=== PATIENT | male | born 1950 | race Caucasian/White ===

== ENCOUNTER 2016-11-13 04:49 | Inpatient (IN) | payer OTHER, MEDICARE ==
[~2016-11-13] VITALS: Ht 185.4 cm; Wt 85.0 kg
--- NOTE | ~2016-11-13 | CO ---
Unit #: [id number] #: [id number] Patient: KALYAN AMES [id number] [address] [place], [place] [address] [id number] I MR#: [id number] NAME: KALYAN AMES ROOM: CICCU3 Age: 66 Sex: M Admission Date: 11/13/2016 : 1950 Attending Physician: Nithin Yung M.D. Primary Care Physician: Primary Care Physician No Consultation Date: 11/13/2016 CONSULTATION REPORT REASON FOR CONSULTATION Elevated troponin. HISTORY OF PRESENT ILLNESS This is a 66-year-old white male, who came to the emergency room because of shortness of breath. He is currently intubated and is unable to provide a history. According to the , she had a recent cold, which she felt she gave to him. Two days ago, he began to have shortness of breath. He was unable to lay down, requiring him to sleep upright on the couch. He had a cough, but no fever or chills. Dyspnea occurred at rest as well on exertion. Because of his dyspnea worsened, he came to the emergency room for evaluation, where he was admitted with COPD exacerbation. He was started on steroids and sent to the intensive care unit, where he was placed on BiPAP. This morning, BiPAP was discontinued. A couple of hours later, the patient became restless and agitated. He was diaphoretic and complaining of chest pain. He was so dyspneic that he was unable to talk. He was on a nasal cannula that was changed to 100% non-rebreather. EKG was obtained, which found the patient to have ST depression in the lateral leads. His troponin initially was negative, but has peaked at 0.88. He has a history of coronary artery bypass graft x3 in 2001 with a mechanical mitral valve replacement after myocardial infarction, was done at [facility]. He also has risk factors for ischemic heart disease includes hypertension, hyperlipidemia, and nicotine abuse. He was seen by Dr. Lam for awhile after his surgery, but has since failed to follow. INR have been checked in his primary care office. PAST MEDICAL HISTORY 1. Coronary artery bypass graft x3 with mechanical mitral valve replacement after myocardial infarction in 2001 at [facility], no details available. 2. Hypertension. 3. Hyperlipidemia. 4. COPD. 5. Hypothyroidism. 6. Active smoker. 7. GERD. 8. Depression. PAST SURGICAL HISTORY Coronary artery bypass graft with mechanical mitral valve placement. SOCIAL HISTORY The patient is . He continues to smoke at least a pack of cigarettes daily for the past 45 years. Does drink alcohol. There is no Unit #: [id number] #: [id number] Patient: KALYAN AMES illicit drug use. FAMILY HISTORY Positive for coronary artery disease. ALLERGIES No known drug allergies. HOME MEDICATIONS Metoprolol tartrate 25 mg daily, levothyroxine 0.1 mg daily, Coumadin 7.5 mg daily, Lipitor 40 mg daily, ramipril 5 mg daily, paroxetine 30 mg daily, aspirin 81 mg daily, magnesium 250 mg daily, vitamin D of 1000 units daily. REVIEW OF SYSTEMS Unable to obtain, because the patient currently is intubated and sedated. PHYSICAL EXAMINATION VITAL SIGNS: Blood pressure 123/65, heart rate 71, temperature 97.0. BMI of 25. GENERAL: This is a 66-year-old white male, who is currently in an acute respiratory distress. NEUROLOGICAL: His eyes are open, unable to speak. Nods very infrequently. There were no obvious focal weaknesses. NECK: Trachea is midline. No thyromegaly. No lymphadenopathy. With positive jugular venous distention. HEART: S1 and S2. Heart sounds are normal. No murmurs. No rubs or clicks. Regular rate and rhythm. He is tachycardic with occasional ectopic beat. LUNGS: With diminished breath sounds throughout both lungs with limited air movement. ABDOMEN: Slightly firm, nondistended with bowel sounds are present. EXTREMITIES: Without leg edema. SKIN: Pale and diaphoretic. Noted for mottling of his lower extremities. DIAGNOSTIC STUDIES LABORATORY RESULTS: Glucose 137, BUN 6, creatinine 1.0, sodium 138, potassium 4.6. BNP 94. CK total 756, MB 30.9, MB index 4.1, troponin 0.84. Pro-time 24.8, INR 2.3. White count 12.4, hemoglobin 16.1, hematocrit 48.3, platelet count is 227. IMAGING STUDIES: Chest x-ray shows coarse interstitial prominence in the mid and lower lobe. CARDIOVASCULAR STUDIES: EKG shows sinus tachycardia, rate of 116 beats per minute. There is ST depression of 3 mm in the lateral leads, V4 through V6. IMPRESSION 1. Acute on chronic hypercapnic respiratory failure. 2. Acute non-ST elevation myocardial infarction. 3. Acute bronchitis. 4. Acute respiratory acidosis. 5. Status post three-vessel coronary artery bypass graft with mitral valve replacement. 6. Hypertension. 7. Hyperlipidemia. 8. Nicotine abuse. Unit #: [id number] #: [id number] Patient: KALYAN AMES PLAN 1. Cardiology was consulted for elevated troponin. The troponin ruled the patient in for an acute non-ST elevation myocardial infarction. We will start the patient on anticoagulation with aspirin and give help heparin bolus. We will start on Integrilin drip. 2. We will add IV beta-radha and nitrates. 3. Obtain 2D echocardiogram to evaluate left ventricular systolic function. 4. The patient demonstrates acute respiratory acidosis with acute respiratory failure. The pH was 6.90 with pCO2 of 66. Has been discussed with Dr. Chavez and he agrees that the patient needs to be intubated. 5. Repeat EKG and troponin. 6. Lipid profile will be obtained. We will start on high intensity statin when the patient is able to take oral. 7. We will withhold Coumadin for now. 8. The patient needs cardiac catheterization to define his coronary anatomy. This has been discussed with the and she is agreeable. We will schedule when the patient is stable. Thank you for allowing us to assist with this patient's care. Dictated by... Lane Levi A.P.R.N. for Sergei Alejo/guru TD: 11/13/2016 20:22 JOB #: [id number] CONSULTATION REPORT Page [address] APRN CONSULTATION REPORT
--- NOTE | ~2016-11-13 | EKG ---
[id number] NAME: KALYAN AMES MR#: [id number] DATE: 11/13/2016 at 13:06 ECG shows sinus tachycardia, with intraventricular conduction delay, mild, single PVCs, and high variability of the baseline. There is a slurred ST segment in the high lateral leads, suggestive of ischemia. No prior record available for comparison. IMPRESSION: 1. ECG suggests ischemia. 2. Suggest followup ECG. Dictated by...
--- NOTE | ~2016-11-13 | CR72 ---
[facility] A Service of [facility] & [facility] RADIOLOGY TEXT RESULTS PATIENT: KALYAN AMES LOCATION: [address] : [birth year] UNIT #: [id number] AGE: [address]: Nithin Yung MD SEX: M ORDER DR: [id number] [id number] [place], [place] [address] [id number] I MR#: [id number] Acc #: [id number] NAME: KALYAN AMES : 1950 SEX: M STUDY DATE/TIME: 11/16/2016 5:11 UNIT: [facility] ROOM: [facility] STUDY DESCRIPTION: CR Chest Single View Portable Attending Physician: Nithin Yung M.D. Ordering Physician: Seven Kauffman M.D. Primary Care Physician: No Primary Care Physician MEDICAL IMAGING REPORT This report is preliminary unless electronic signature is present EXAM Portable chest INDICATIONS Respiratory failure followup. PROCEDURE Frontal view chest. COMPARISON STUDIES 11/15/2016 FINDINGS Heart size within normal limits. ET tube is stable. No new dense consolidation or pneumothorax. IMPRESSION Stable. Dictated by... Gage Dawson M.D. THIS IS AN ELECTRONICALLY VERIFIED REPORT Gage Dawson M.D. at 11/17/2016 10:04 PM HARMEET/lauren TD: 11/16/2016 14:24 JOB #: [id number] MEDICAL IMAGING REPORT Page 1 of 1 COPY
--- NOTE | ~2016-11-13 | CO ---
Unit #: [id number] #: [id number] Patient: KALYAN AMES [id number] [address] [place], [place] [address] [id number] I MR#: [id number] NAME: KALYAN AMES ROOM: CIC3 Age: 66 Sex: M Admission Date: 11/13/2016 : 1950 Attending Physician: Nithin Yung M.D. Primary Care Physician: Primary Care Physician No CONSULTATION REPORT TYPE OF CONSULTATION Renal consult. REASON FOR CONSULTATION Evaluation of renal insufficiency. HISTORY OF PRESENT ILLNESS This is a 66-year-old white gentleman, who complained of shortness of breath and cough beginning 24 hours prior to admission. He states that he was unable lay down and required to sitting upright in order to sleep. With this he had some cough, but no fever. No chills. As the symptoms became progressively worse, he was admitted to the hospital for further evaluation and management. He was initially started on steroids and placed on BIPAP. As the symptoms became progressively worse, he was intubated and he was placed on the ventilator for mechanical ventilation. He worked up as shown and elevated troponin level of 7.0. We have been asked to see the patient because during this rapid decline, his renal function has became progressively worse. His creatinine has increased from 0.9 to 2.0 today. The patient has no prior history of renal disease. He does carry a diagnosis of hypertension, coronary artery disease, and chronic obstructive pulmonary disease. He is on the ventilator otherwise, no additional medical history. Review of his medications is not sure that he has received or taken any significant nephrotoxic agents. PAST MEDICAL HISTORY Significant for the following, 1. Coronary artery disease, status post coronary artery bypass grafting x3 with mechanical mitral valve placement in 2001. 2. Hypertension. 3. Hyperlipidemia. 4. Chronic obstructive pulmonary disease. 5. Hypothyroidism. 6. GERD. 7. Depression. MEDICATIONS The patient's current medications include the following, 1. Lasix 40 mg IV x1. 2. Raulito-Synephrine titrated for blood pressure. 3. Coumadin 7.5 mg daily. 4. Doxycycline 100 mg p.o. b.i.d. 5. Lopressor 5 mg IV q.6. 6. Aspirin 81 mg p.o. daily. 7. Integrilin 2 mg/kg. Unit #: [id number] #: [id number] Patient: KALYAN AMES 8. Heparin drip. 9. Solu-Medrol 80 mg IV q.8. 10. Combivent metered-dose inhaler q.4 hours. 11. Paxil 30 mg p.o. daily. 12. Mag-Ox 250 mg p.o. daily. 13. Vitamin D 1000 units daily p.o. daily. 14. Atorvastatin 40 mg p.o. daily. 15. Ramipril 5 mg p.o. daily, it was discontinued. ALLERGIES The patient has no known drug allergies. FAMILY HISTORY Positive for coronary artery disease. SOCIAL HISTORY The patient is . He smokes at least 1 pack per day for the past 45 years. He denies any alcohol or drug abuse. REVIEW OF SYSTEMS Unobtainable due to the patient's current state. PHYSICAL EXAMINATION GENERAL: This is a chronically ill-appearing white gentleman, who appears older than his stated age. VITAL SIGNS: This afternoon show a temperature of 99.2, pulse of 94, respirations 27, BP of 130/76. HEENT: Shows the pupils to be equal and reactive to light with normal extraocular motility. The oropharynx is clear. The patient is edentulous. The patient has an ET tube in place. NECK: Supple, 2+ carotid pulses. No carotid bruits or JVD. No adenopathy. HEART: Regular rhythm without murmurs, gallops, or rubs. There is a grade 2/6 systolic ejection murmur, heard best over the apical region. LUNGS: Show bilateral expiratory wheezes without rales or rhonchi appreciated. ABDOMEN: Obese, soft, and nontender with positive bowel sounds. No hepatosplenomegaly. No CVA tenderness. No presacral edema. Femoral pulses are 2+ bilateral. EXTREMITIES: Show no clubbing, no cyanosis, with trace pitting edema. There are 2+ pedal and radial pulses. LABORATORY DATA Blood gas with a pH of 7.28, pCO2 of 54, pO2 of 94, on 50% O2. Glucose is 160, BUN is 25, creatinine is 2.0, sodium is 139, potassium is 5.1, chloride of 106, CO2 of 23, calcium is 8.6, total protein is 7.7, albumin is 4.6, total bili is 0.6, AST is 39, ALT is 31, alkaline phosphatase is 86, CK is 1104. Troponin level is 7.3. Hemoglobin A1c is 5.5%. PT and PTT are 24.7 and 35. White count is 22,000, with hemoglobin and hematocrit of 14 and 42, platelet count of 244,000. IMPRESSION 1. Acute renal failure, which appears to multifactorial most likely secondary to cardiogenic shock. 2. Acute myocardial infarction. 3. Chronic obstructive pulmonary disease with respiratory failure currently on a ventilator. 4. Hypertension by history. Unit #: [id number] #: [id number] Patient: KALYAN AMES 5. Coronary artery disease, status post acute myocardial infarction and CABG/MVR. 6. Hyperlipidemia. 7. Hypothyroidism. RECOMMENDATIONS 1. Agree with p.r.n. diuresis at this point with a low BNP as unlikely the patient is in any significant congestive heart failure. We will agree with pressor support. If cardiac cath is needed, but allow renal function to recover first. Otherwise, the patient will be at high risk for contrast induced nephropathy. We will monitor fluid and electrolyte status. Thank you very much for allowing us to participate in this patient's care. We will follow along with you. Dictated by... Jesús Sheehan Jr., M.Israel. LATANYA/guru TD: 11/15/2016 13:29 JOB #: [id number] CONSULTATION REPORT Page 1 of 1 X Jesús Sheehan Jr, MD X CONSULTATION REPORT
--- NOTE | ~2016-11-13 | CR7 ---
[facility] A Service of [facility] & [facility] RADIOLOGY TEXT RESULTS PATIENT: KALYAN AMES LOCATION: [address] : [birth year] UNIT #: [id number] AGE: [address]: Nithin Yung MD SEX: M ORDER DR: [id number] [facility] [address] [place], [place] [address] [id number] I MR#: [id number] Acc #: [id number] NAME: KALYAN AMES : 1950 SEX: M STUDY DATE/TIME: 11/15/2016 10:26 UNIT: [facility] ROOM: [facility] STUDY DESCRIPTION: CR Abdomen Single AP View Attending Physician: Nithin Yung M.D. Ordering Physician: Seven Kauffman M.D. Primary Care Physician: Primary Care Physician No MEDICAL IMAGING REPORT This report is preliminary unless electronic signature is present EXAM Portable abdomen 11/15/2016 HISTORY Cardiac arrest this morning, respiratory failure, intubated, feeding difficulty, Dobbhoff tube placement. FINDINGS The tip of the Dobbhoff tube is in the region of the distal stomach. Dictated by... Gennaro Mcclain M.D. THIS IS AN ELECTRONICALLY VERIFIED REPORT Gennaro Mcclain M.D. at 11/16/2016 6:32 AM VAL/romario TD: 11/15/2016 22:27 JOB #: [id number] MEDICAL IMAGING REPORT Page 1 of 1 COPY
--- NOTE | ~2016-11-13 | CR72 ---
[facility] A Service of [facility] RADIOLOGY TEXT RESULTS PATIENT: KALYAN AMES LOCATION: [facility] : [birth year] UNIT #: [id number] AGE: [address]: Wayne Cha DO SEX: M ORDER DR: [id number] [facility] [address] [place], [place] [address] [id number] E MR#: [id number] Acc #: [id number] NAME: KALYAN AMES : 1950 SEX: M STUDY DATE/TIME: 11/13/2016 5:24 UNIT: [facility] ROOM: STUDY DESCRIPTION: CR Chest Single View Portable Attending Physician: Wayne Cha D.O. Ordering Physician: Sean Porras M.D. Primary Care Physician: Primary Care Physician No MEDICAL IMAGING REPORT This report is preliminary unless electronic signature is present EXAM Portable chest HISTORY Dyspnea and chest tightness for 2 days. FINDINGS Bilateral emphysema and hyperinflation of both lungs. Sternotomy with CABG markers and cardiac valve prosthesis. Mild linear atelectasis or scarring in the left lower lung. No airspace infiltrates or effusions. IMPRESSION Emphysema. No acute findings. Dictated by... Slick Alas M.D. THIS IS AN ELECTRONICALLY VERIFIED REPORT Slick Alas M.D. at 11/13/2016 6:28 AM DOMENIC/george TD: 11/13/2016 06:08 JOB #: [id number] MEDICAL IMAGING REPORT Page 1 of 1 COPY
--- NOTE | ~2016-11-13 | US77 ---
[facility] A Service of [facility] & [facility] RADIOLOGY TEXT RESULTS PATIENT: KALYAN AMES LOCATION: [facility] [birth year] UNIT #: [id number] AGE: [address]: Nithin Yung MD SEX: M ORDER DR: [id number] [facility] [address] [place], [place] [address] [id number] I MR#: [id number] Acc #: [id number] NAME: KALYAN AMES : 1950 SEX: M STUDY DATE/TIME: 11/14/2016 17:31 [facility]: [facility] STUDY DESCRIPTION: US Kidney Bilateral Complete Attending Physician: Nithin Yung M.D. Ordering Physician: Jesús Sheehan Jr., M.D. Primary Care Physician: Primary Care Physician No MEDICAL IMAGING REPORT This report is preliminary unless electronic signature is present EXAM Complete bilateral renal ultrasound COMPARISON None INDICATIONS 56-year-old male with renal failure of uncertain acuity. Estimated GFR of 44 with creatinine at 1.6 and BUN of 27. FINDINGS The liver appears echogenic relative to the right renal cortex suggesting hepatic steatosis. Right kidney is normal length at 12.8 cm with normal cortical thickness. Color flow was demonstrated in the right kidney. There is no right hydronephrosis. No shadowing right renal calculus. No focal right renal lesion. There is a large simple cyst in the left kidney with posterior through transmission measuring 6.9 cm x 6.2 cm x 8.1 cm. This is associated with the mid pole. The left kidney is normal in length at 12.9 cm. Cortical thickness appears normal. There is no left hydronephrosis. No shadowing left renal calculi. Urinary bladder is not well seen due to under distension. IMPRESSION 1. Large cyst of the left kidney measuring up to 8.1 cm x 6.9 cm x 6.1 cm. The kidneys are otherwise unremarkable with normal size and cortical thickness. No hydronephrosis. 2. Please note urinary bladder is not seen on this exam due to under distension. Dictated by... Manny Miller M.D. [facility] A Service of [facility] & [facility] RADIOLOGY TEXT RESULTS PATIENT: KALYAN AMES LOCATION: [facility]3-20 : [birth year] UNIT #: [id number] AGE: [address]: Nithin Yung MD SEX: M ORDER DR: THIS IS AN ELECTRONICALLY VERIFIED REPORT Manny Miller M.D. at 11/19/2016 10:00 PM BLM/to TD: 11/15/2016 13:51 JOB #: [id number] MEDICAL IMAGING REPORT Page 1 of 1 COPY
--- NOTE | ~2016-11-13 | DS ---
Unit #: [id number] #: [id number] Patient: KALYAN AMES [id number] [facility]. [place], [place] [address] [id number] I MR#: [id number] NAME: KALYAN AMES ROOM: [facility] Age: 66 Sex: M Admission Date: 11/13/2016 : 1950 Discharge Date: 11/16/2016 Attending Physician: Nithin Yung M.D. DISCHARGE SUMMARY TRANSFER SUMMARY PRINCIPAL DISCHARGE DIAGNOSES 1. Acute inferior myocardial infarction. 2. Status post coronary artery bypass grafting. 3. Status post mitral valve replacement. 4. Acute on chronic respiratory failure. 5. Acute kidney injury. 6. Tobacco use. 7. Status post ventricular fibrillation arrest. 8. Severe left ventricular dysfunction with an EF of approximately 20%. 9. COPD. 10. Hyperlipidemia. 11. Hypothyroidism. CONSULTANTS 1. Dr. Dwayne Chavez 2. Dr. Ramirez HISTORY AND HOSPITAL COURSE The patient presented to the hospital with acute hypoxic respiratory failure, acute respiratory acidosis, and acute non-ST elevation myocardial infarction with acute systolic CHF. In the emergency room, he was initially placed on BiPAP. He continued to deteriorate. He was given IV steroids, bronchodilators, and had to be intubated. Soon after admission, his troponins became elevated. Cardiology was consulted, and he was placed on a dobutamine drip. An echo was performed and showed an EF of 20%. He was placed on IV heparin, nitroglycerin, propofol, IV antibiotics, IV steroids, and Integrilin, as well as aspirin. His Coumadin was held as he was on IV heparin. His peak troponin appears to be 9.52. He also developed acute renal insufficiency and was seen in consultation by Nephrology. A renal ultrasound was performed which showed a large cyst on the left kidney but was otherwise unremarkable without hydronephrosis or evidence of chronic kidney disease. He is being hydrated for the renal insufficiency. He went into v fib arrest. Luckily, two cardiologists were in the unit at the time. He was immediately resuscitated and started on further sedation as it appeared that he had this episode when he was being weaned off his sedation for possible extubation. Subsequently, in further discussion with Cardiology, they feel he needs to be transferred to [facility] Unit #: [id number] #: [id number] Patient: KALYAN AMES for cath and further intervention because of his high risk and need for possible repeat CABG. His creatinine this morning is 1.6. His potassium is 3.6. His magnesium is 2.2 and phosphorus is 3.9. PTT is 63. White count 16.6, hemoglobin 11.9, and platelets 196,000. On 60% FIO2, his pH is 7.397, PCO2 is 59, and PaO2 is 86.4. Please refer to his current medication list as they are changing constantly before my eyes for his med list upon transfer. Currently, he has Jevity ordered to be started per his Dobbhoff tube, Jevity 1.5 at 20 mL/hour with instructions not to increase the rate. Dictated by... Sergei Cruz/janice TD: 11/16/2016 17:00 JOB #: [id number] DISCHARGE SUMMARY Page 1 of 1 X Nithin Yung MD X DISCHARGE SUMMARY
--- NOTE | ~2016-11-13 | CR72 ---
[facility] A Service of [facility] RADIOLOGY TEXT RESULTS PATIENT: KALYAN AMES LOCATION: [address] : [birth year] UNIT #: [id number] AGE: [address]: Nithin Yung MD SEX: M ORDER DR: [id number] [facility] [address] [place], [place] [address] [id number] I MR#: [id number] Acc #: [id number] NAME: KALYAN AMES : 1950 SEX: M STUDY DATE/TIME: 11/14/2016 11:15 UNIT: [facility] ROOM: [facility] STUDY DESCRIPTION: CR Chest Single View Portable Attending Physician: Nithin Yung M.D. Ordering Physician: Verónica Russell M.D. Primary Care Physician: Primary Care Physician No MEDICAL IMAGING REPORT This report is preliminary unless electronic signature is present EXAM Portable chest INDICATIONS Dobbhoff tube placement. Comparison with earlier today. FINDINGS A Dobbhoff tube has been placed. The tip of the tube projects over the mediastinum in the region of the mainstem bronchus on the left. I am unsure if this is in the bronchus or in the esophagus. No new infiltrates. ET tube stable. Heart size stable. IMPRESSION The tip of the Dobbhoff tube projects over the mediastinum in the region of the left mainstem bronchus. I am unsure if the tube is within the left mainstem bronchus or if it is within the esophagus. Dictated by... Cheikh Spencer M.D. THIS IS AN ELECTRONICALLY VERIFIED REPORT Cheikh Spencer M.D. at 11/18/2016 7:21 AM ARS/que TD: 11/14/2016 12:49 JOB #: [id number] MEDICAL IMAGING REPORT Page 1 of 1 COPY
--- NOTE | ~2016-11-13 | A ---
[facility] Nutrition Therapy DATE: 11/14/16 Patient: KALYAN AMES Physician: NINA Address: [address] [place] [address] Room/Bed: [address], Zip: [place] [address] Admit Date: 11/13/16 Date of : [birth year] Height: 6 1 Weight: 187 85 NUTRITIONAL ASSESSMENT: REASON: NPO, intubated Admitting dx: 66 y/o male admitted with repiratory failure PMH: CABG x 3, valve replacement, HTN, HLD, GERD, CAD, anxiety/depression, hypothyroidism, CT, COPD, 2PPD smoker, ETOH abuse Anthropometrics: HT: 73" WT: 87kg BMI: 25.3 2017 weight range 197-196#s Labs: Gluc: 160, BUN: 25, Creat: 2.0, GFR: 34 Meds: Propofol @ 35.7 ml/hr, Synthroid, SOLU-medrol, Furosemide, Lopressor, Vit. D, NaCl I/O & Bowel function: No BM's to note. No c/o N/V. Skin Integrity: RA bruising, Chest scars, BL bruising Estimated Nutrition Needs: 7235-8699 kcal/day (25-30 kcal/kg) 104-131 g/day protein (1.2-1.5 g/kg) Fluids consistent with kcal needs or per MD. Assessment: Chart reviewed, events noted. See admitting dx and PMH as stated above. Pt is currently on the vent and sedated after a CT in the ICU. Pt also has an GEMA. Propofol is running at 35.7 ml/hr to provide 942 kcal/day. No plans to extubate the pt at this moment per RN report. Pt was previously on a HH diet with plans to move out of the ICU. Per nursing, the pt may need enteral nutrition. See RD recs below, will follow hospital course. Dx: Inadequate energy intake r/t vent dependence, clinical condition AEB NPO x 1 day, possible need for enteral nutrition. Intervention: Enteral nutrition initiation Monitoring, Evaluation and Goals: 1. EN; initiate, EN consistent with estimated needs (tolerate at goal rate). 2. Improve labs; glucose, BUN, creat 3. Promote regular BM's. [facility] Nutrition Therapy DATE: 11/14/16 Patient: KALYAN AMES Physician: NINA Address: [address] [place] [address] Room/Bed: [address], Zip: [place] [address] Admit Date: 11/13/16 Date of : [birth year] Height: 6 1 Weight: 187 85 Recommendations: 1. If the pt is appropriate for enteral nutrition, start Jevity 1.5 at 20 ml/hr x 20 hrs and increase by 10 ml q 4 hours as tolerated until a goal rate of 35 ml/hr x 20 hrs is reached (goal rate with propofol). -Please order 30ml Prostat to be given q 6 hours via tube. This nutrition regimen + kcals from propofol will provide 700ml, 2392 kcals, 105 g protein, and 532 ml water. Once at goal rate add 250 ml free water flushes q 4 hours or per MD. -If propofol is D/C'd please provide 30 ml Prostat daily and increase enteral nutrition rate to a new goal rate of 70ml/hr x 20 hrs, to provide 1400 ml, 2200 kcal, 104 g protein, and 1064 ml water. Adjust free water flushes to 250 ml QID or per MD. Hold EN for two hours before and two hours after Synthroid administration (EN will run for total of 20 hrs) 3. If extubated advance oral diet per CASINO MANAGER recs with HHD restriction. RD will follow Moderate-severe malnutrition risk Respectfully, ZAHRA KLEIN RD, LD Linda Lipscomb, Cdl Team [employer] [facility] cc: client file
--- NOTE | ~2016-11-13 | EKG ---
PATIENT: KALYAN AMES UNIT #: [id number] Ventricular Rate: 86 BPM Atrial Rate: 86 BPM P-R Interval: 148 ms QRS Duration: 100 ms Q-T Interval: 362 ms QTC Calculation(Bezet): 433 ms P [place]: 83 degrees Calculated R [place]: 10 degrees Calculated T [place]: 21 degrees Diagnosis Line: Sinus rhythm with Premature atrial complexes Diagnosis Line: Nonspecific ST and T wave abnormality Diagnosis Line: Abnormal ECG Diagnosis Line: When compared with ECG of 14-NOV-2016 05:50, Diagnosis Line: Premature atrial complexes are now Present Diagnosis Line: T wave inversion no longer evident in Lateral Diagnosis Line: leads Diagnosis Line: Confirmed by JOHN PATEL MD ([id number]) on Diagnosis Line: 11/16/2016 5:00:17 PM INTERPRETING MD: CARIN
--- NOTE | ~2016-11-13 | HP ---
Unit #: [id number] #: [id number] Patient: KALYAN CAMILO [id number] [address] [place], [place] [address] [id number] I MR#: [id number] NAME: KALYAN CAMILO ROOM: [facility]ICCU3 Age: 66 Sex: M Admission Date: 11/13/2016 : 1950 Attending Physician: Nithin Yung M.D. Primary Care Physician: No Primary Care Physician HISTORY AND PHYSICAL ADMISSION DIAGNOSES 1. Acute respiratory failure. 2. Non-STEMI. 3. Acute kidney injury. 4. Ischemic cardiomyopathy with acute systolic failure. 5. History of coronary artery disease. 6. History of valvular heart disease and mechanical valve and on chronic anticoagulation. 7. History of COPD. 8. Dyslipidemia. 9. Continuous tobacco use. HISTORY OF PRESENT ILLNESS Mr. Camilo is a 66-year-old gentleman, patient of Dr. Blanton, who apparently presented to the emergency room with complaints of shortness of air, dyspnea. Initially he was placed on the BiPAP. However, he continued to deteriorate despite the treatments with the IV steroids and bronchodilators and had to be intubated. Currently, he is sedated, on mechanical ventilation. There is no family member present. Initially, patient was not on my list. Therefore, I am seeing him today and all the medical history is basically obtained from the chart through my colleagues' notes as well as the ICU notes. Apparently he had some upper respiratory illness, had some sick contact at home with his who was also sick and then became progressively short of air, dyspneic and presented to the ER. In the ER, again, initially he was treated with the bronchodilators, IV steroids and was placed on BiPAP. However, deteriorated and got intubated later. His initial troponins were negative. However, then it peaked up to 0.88. He was started on IV heparin per cardiology along with the dobutamine drip secondary to an EF of 20-25%, according to a 2D echo. Patient had been evaluated and cared by Dr. Ramirez. He does carry extensive past medical history as below but as of now I am not able to obtain any review of systems secondary to patient being sedated on mechanical ventilation. PAST MEDICAL HISTORY Significant for: 1. History of coronary artery disease. 2. History of hypertension. 3. Dyslipidemia. 4. COPD. 5. Hypothyroidism. 6. Depression. 7. Valvular heart disease. 8. GERD. Unit #: [id number] #: [id number] Patient: KALYAN CAMILO 9. Also, being an active smoker. PAST SURGICAL HISTORY Significant for: 1. Valve replacement with the mechanical valve. 2. Also, CABG. SOCIAL HISTORY Apparently he continues to smoke cigarettes and had been an active smoker all his adult life. Also consumes alcohol socially. No history of illicit drug abuse. Lives with his . FAMILY HISTORY Significant for coronary artery disease. ALLERGIES No known drug allergies. MEDICATIONS Current medications on this gentleman include: 1. Dobutamine drip. 2. IV heparin. 3. Pepcid IV. 4. He is on aspirin suppositories. 5. IV Rocephin. 6. Synthroid. 7. Propofol. 8. Vibramycin. 9. Nitroglycerin. 10. He is also on IV Solu-Medrol, Integrilin and bronchodilators. PHYSICAL EXAM Again, patient is intubated and sedated. VITAL SIGNS: BP 101/54, heart rate 87, respirations 17, temperature 99.5. HEENT: Head is atraumatic. Pupils equal, round and reactive to light. Orally intubated. NECK: Supple. No masses, No JVD, no bruits. CHEST: Diminished bilaterally. CARDIOVASCULAR SYSTEM: S1, S2, no murmurs. ABDOMEN: Obese, nondistended. Bowel sounds are present but diminished. EXTREMITIES: Lower extremities without any cyanosis, clubbing or edema. NEUROLOGICAL EXAM: Unobtainable. LABS AND DIAGNOSTICS LABORATORY: White count 22.5, H and H 14.4 and 42.1, platelets 249, PT/INR 23 and 2.1, BUN and creatinine 27 and 1.6. Blood glucose 156. IMAGING: Chest x-ray from this morning unremarkable. ASSESSMENT AND PLAN 1. Acute hypoxemic respiratory failure. 2. Acute non-STEMI. 3. Acute kidney injury. 4. Ischemic cardiomyopathy. 5. History of coronary artery disease. 6. History of valvular heart disease. Unit #: [id number] #: [id number] Patient: KALYAN CAMILO 7. COPD. 8. Continuous tobacco use. 9. Dyslipidemia. PLAN Continue vent management, bronchodilators, steroids and antibiotics in ICU. Continue hemodynamic support with (1) . Continue IV heparin, dobutamine drip per cardiology. Obviously, he needs a cardiac cath. However, this is planned most likely Thursday if the renal function allows. Meanwhile, again, hemodynamic support, IV heparin, GI and DVT prophylaxis. Dictated by Jesús Key M.D. OC/df TD: 11/15/2016 09:02 JOB #: [id number] HISTORY AND PHYSICAL Page 1 of 1 X Jesús Key MD HISTORY AND PHYSICAL
--- NOTE | ~2016-11-13 | EKG ---
PATIENT: KALYAN AMES UNIT #: [id number] Ventricular Rate: 122 BPM Atrial Rate: 122 BPM P-R Interval: 136 ms QRS Duration: 88 ms Q-T Interval: 318 ms QTC Calculation(Bezet): 453 ms P [place]: 75 degrees Calculated R [place]: -42 degrees Calculated T [place]: 84 degrees Diagnosis Line: Sinus tachycardia Diagnosis Line: Left axis deviation Diagnosis Line: Inferior infarct (cited on or before 15-NOV-2016) Diagnosis Line: Nonspecific ST and T wave abnormality Diagnosis Line: Abnormal ECG Diagnosis Line: When compared with ECG of 15-NOV-2016 07:41, Diagnosis Line: (unconfirmed) Diagnosis Line: Significant changes have occurred Diagnosis Line: Confirmed by JOHN PATEL MD ([id number]) on Diagnosis Line: 11/16/2016 5:01:11 PM INTERPRETING MD: CARIN
--- NOTE | ~2016-11-13 | EKG ---
PATIENT: KALYAN AMES UNIT #: [id number] Ventricular Rate: 75 BPM Atrial Rate: 75 BPM P-R Interval: 172 ms QRS Duration: 108 ms Q-T Interval: 428 ms QTC Calculation(Bezet): 477 ms P [place]: 82 degrees Calculated R [place]: -33 degrees Calculated T [place]: -158 degrees Diagnosis Line: Normal sinus rhythm Diagnosis Line: Left axis deviation Diagnosis Line: Nonspecific T wave abnormality Diagnosis Line: Prolonged QT Diagnosis Line: Abnormal ECG Diagnosis Line: Diagnosis Line: Confirmed by JOHN PATEL MD ([id number]) on Diagnosis Line: 11/14/2016 4:42:38 PM INTERPRETING MD: CARIN
--- NOTE | ~2016-11-13 | EKG ---
PATIENT: KALYAN AMES UNIT #: [id number] Ventricular Rate: 71 BPM Atrial Rate: 71 BPM P-R Interval: 168 ms QRS Duration: 108 ms Q-T Interval: 390 ms QTC Calculation(Bezet): 423 ms P [place]: 81 degrees Calculated R [place]: -19 degrees Calculated T [place]: -9 degrees Diagnosis Line: Normal sinus rhythm Diagnosis Line: Nonspecific T wave abnormality Diagnosis Line: Abnormal ECG Diagnosis Line: When compared with ECG of 13-NOV-2016 14:22, Diagnosis Line: (unconfirmed) Diagnosis Line: No significant change was found Diagnosis Line: Confirmed by JOHN PATEL MD ([id number]) on Diagnosis Line: 11/14/2016 4:47:13 PM INTERPRETING MD: CARIN
--- NOTE | ~2016-11-13 | CR72 ---
[facility] A Service of [facility] & [facility] RADIOLOGY TEXT RESULTS PATIENT: KALYAN AMES LOCATION: [address] : [birth year] UNIT #: [id number] AGE: [address]: Nithin Yung MD SEX: M ORDER DR: [id number] [facility] [address] [facility]. [place], [place] [address] [id number] I MR#: [id number] Acc #: [id number] NAME: KALYAN AMES : 1950 SEX: M STUDY DATE/TIME: 11/14/2016 5:36 UNIT: [facility] ROOM: [facility] STUDY DESCRIPTION: CR Chest Single View Portable Attending Physician: Nithin Yung M.D. Ordering Physician: Physician Non-Staff Primary Care Physician: Primary Care Physician No MEDICAL IMAGING REPORT This report is preliminary unless electronic signature is present EXAM Portable chest HISTORY Shortness of air. Respiratory distress. Intubated. FINDINGS ETT has been advanced since yesterday with its tip now 3.5 cm above the kyung. Stable cardiac and mediastinal contours. No new infiltrates. Postop changes of prior cardiac surgery. Mild hyperinflation of both lungs. Mild linear atelectasis or scarring in the left base. Dictated by... Slick Alas M.D. THIS IS AN ELECTRONICALLY VERIFIED REPORT Slick Alas M.D. at 11/14/2016 4:03 PM DOMENIC/fredy TD: 11/14/2016 08:11 JOB #: [id number] MEDICAL IMAGING REPORT Page 1 of 1 COPY
--- NOTE | ~2016-11-13 | CO ---
Unit #: [id number] #: [id number] Patient: KALYAN CAMILO [id number] [facility]. [place], [place] [address] [id number] I MR#: [id number] NAME: KALYAN CAMILO ROOM: [facility]3 Age: 66 Sex: M Admission Date: 11/13/2016 : 1950 Attending Physician: Nihtin Yung M.D. Primary Care Physician: No Primary Care Physician CONSULTATION REPORT HISTORY Mr. Camilo is a 66-year-old white male who I have seen in the distant past. Has a history of COPD, coronary artery disease status post coronary artery bypass grafting, mitral valve replacement and tobacco abuse. He presents with a 2-day history of increasing nasal congestion, cough, sputum production, wheezing and shortness of breath. He says his had caught a cold at school last week. She brought it home and gave it to him. He has noted increasing shortness of breath over the last 2 days and presented to the emergency room. His chest x-ray showed hyperinflation, flattened diaphragm, no infiltrate. He is maintained on albuterol and Symbicort at home. He rarely has to use his albuterol until the last couple of days. PAST MEDICAL HISTORY His past medical history is significant for COPD, coronary artery disease, rheumatic fever as a child. He has had coronary bypass grafting, mitral valve replacement. Also has a history of chronic anticoagulation, hypertension, hypothyroidism, hyperlipidemia and GERD. HOME MEDICATIONS Include Metoprolol, Synthroid, warfarin, Lipitor, ramipril, Paxil, aspirin, magnesium, vitamin D, Symbicort and albuterol. ALLERGIES None known. SURGICAL HISTORY Mitral valve replacement, coronary bypass graft in 2001. SOCIAL HISTORY He smokes about a pack and a half cigarettes a day. Drinks 9 beers a week. No IV drug abuse. . Stays in his home. [place] from his home. FAMILY HISTORY Coronary artery disease. REVIEW OF SYSTEMS CONSTITUTIONAL: No fevers, chills. HEENT: Some rhinorrhea, nasal congestion. PULMONARY: As noted. CARDIAC: Has pain in his chest when he coughs. GI: No nausea, vomiting. : Has an enlarged prostate, followed by Dr. Chauncey Kelley Unit #: [id number] #: [id number] Patient: KALYAN CAMILO NEURO: No unilateral weakness, numbness. SKIN: No rash. MUSCULOSKELETAL: No swollen joints. PHYSICAL EXAM GENERAL: White male. No distress. Able to speak in complete sentences. Not using accessory muscles of respiration VITAL SIGNS: Blood pressure is 132/65, pulse 75, respiratory rate 23, afebrile. HEENT: Normocephalic, atraumatic. Pupils equal, round, reactive. Sclerae nonicteric. Nasal passages patent. Posterior pharynx clear. Mucous membranes moist. NECK: Neck is supple. Trachea midline. No cervical, supraclavicular lymphadenopathy. RESPIRATORY: Lungs revealed diffuse inspiratory and expiratory wheezes bilaterally. CARDIAC: Heart sounds distant. Regular rate and rhythm. Could not appreciate murmur, rub or gallop. ABDOMEN: Nontender. Bowel sounds present. No hepatosplenomegaly. EXTREMITIES: Without clubbing, cyanosis or edema. NEURO: Awake, oriented x3. Cranial nerves intact. Muscle strength symmetric. PSYCHIATRIC: Affect calm. SKIN: Skin is warm and dry. IMPRESSION 1. COPD exacerbation. 2. Acute bronchitis. 3. Tobacco abuse. 4. Coronary artery disease status post mitral valve replacement. 5. Hypertension. 6. Hypothyroidism. 7. Other problems as mentioned above. RECOMMENDATIONS 1. Smoking cessation. 2. Inhaled bronchodilators, steroids, antibiotics. 3. He seems relatively stable. He is currently maintained in the ICU. I think he can move to med/surg. 1. Dictated by... Bryan Chavez M.D. EVERARDO/maria guadalupe TD: 11/14/2016 08:57 JOB #: [id number] Unit #: [id number] #: [id number] Patient: KALYAN CAMILO CONSULTATION REPORT Page 1 of 1 X Bryan Chavez MD CONSULTATION REPORT
--- NOTE | ~2016-11-13 | EKG ---
PATIENT: KALYAN AMES UNIT #: [id number] Ventricular Rate: 96 BPM Atrial Rate: 96 BPM P-R Interval: 146 ms QRS Duration: 104 ms Q-T Interval: 400 ms QTC Calculation(Bezet): 505 ms P [place]: 83 degrees Calculated R [place]: 2 degrees Calculated T [place]: 74 degrees Diagnosis Line: Sinus rhythm with occasional Premature ventricular Diagnosis Line: complexes Diagnosis Line: Prolonged QT Diagnosis Line: Abnormal ECG Diagnosis Line: When compared with ECG of 15-NOV-2016 08:45, Diagnosis Line: (unconfirmed) Diagnosis Line: Premature ventricular complexes are now Present Diagnosis Line: ST no longer depressed in Inferior leads Diagnosis Line: Diagnosis Line: Diagnosis Line: Confirmed by JOHN PATEL MD ([id number]) on Diagnosis Line: 11/16/2016 5:08:08 PM INTERPRETING MD: CARIN
--- NOTE | ~2016-11-13 | CR7 ---
[facility] A Service of [facility] & [facility] RADIOLOGY TEXT RESULTS PATIENT: KALYAN AMES LOCATION: [address] : [birth year] UNIT #: [id number] AGE: [address]: Nithin Yung MD SEX: M ORDER DR: [id number] [facility] [address] [facility]. [place], [place] [address] [id number] I MR#: [id number] Acc #: [id number] NAME: KALYAN AMES : 1950 SEX: M STUDY DATE/TIME: 11/14/2016 14:06 UNIT: [facility] ROOM: [facility] STUDY DESCRIPTION: CR Abdomen Single AP View Attending Physician: Nithin Yung M.D. Ordering Physician: Ed Doc Sergei Herrera Primary Care Physician: Primary Care Physician No MEDICAL IMAGING REPORT This report is preliminary unless electronic signature is present EXAM Abdomen 1 view, 11/14/2016 1406 hours HISTORY Dobbhoff tube placement today, abdominal pain today. COMPARISON None. FINDINGS Single view of the abdomen is performed. It includes the lower right chest but excludes the pelvis and the left abdomen and flank. There is a Dobbhoff tube present with tip directed inferiorly in the left mid abdomen in the proximal stomach. Bowel gas pattern is unremarkable. IMPRESSION Technically limited film confirms the presence of a flexible feeding tube in the [id number] body of the stomach with tip directed inferiorly. Dictated by... Samara Hernandez M.D. THIS IS AN ELECTRONICALLY VERIFIED REPORT Samara Hernandez M.D. at 11/14/2016 6:15 PM DERIK/que TD: 11/14/2016 18:08 JOB #: [id number] MEDICAL IMAGING REPORT Page 1 of 1 COPY
--- NOTE | ~2016-11-13 | CR72 ---
[facility] A Service of [facility] RADIOLOGY TEXT RESULTS PATIENT: KALYAN AMES LOCATION: [facility] : [birth year] UNIT #: [id number] AGE: [address]: Nithin Yung MD SEX: M ORDER DR: [id number] [facility] [address] [facility]. [place], [place] [address] [id number] I MR#: [id number] Acc #: [id number] NAME: KALYAN AMES : 1950 SEX: M STUDY DATE/TIME: 11/15/2016 10:24 UNIT: [facility] ROOM: [facility] STUDY DESCRIPTION: CR Chest Single View Portable Attending Physician: Nithin Yung M.D. Ordering Physician: Seven Kauffman M.D. Primary Care Physician: No Primary Care Physician MEDICAL IMAGING REPORT This report is preliminary unless electronic signature is present EXAM Portable chest 11/15/2016 HISTORY Cardiac arrest this morning, short of breath, COPD exacerbation. Benign essential hypertension. FINDINGS The cardiac and mediastinal structures are stable compared with earlier today at 05:21 a.m. status post median sternotomy and valvular replacement. There has been no change in the position of the life support equipment. Nasogastric tube remains in place with tip below the diaphragm not visualized. Bilateral interstitial infiltrates are unchanged. There are no pleural effusions. IMPRESSION No significant interval change compared with previous chest radiograph performed earlier today at 05:21 a.m. Dictated by... Gennaro Mcclain M.D. THIS IS AN ELECTRONICALLY VERIFIED REPORT Gennaro Mcclain M.D. at 11/16/2016 6:32 AM KRT/lauren TD: 11/15/2016 22:23 JOB #: [id number] [facility] A Service [facility] RADIOLOGY TEXT RESULTS PATIENT: KALYAN AMES LOCATION: [facility] : [birth year] UNIT #: [id number] AGE: [address]: Nithin Yung MD SEX: M ORDER DR: MEDICAL IMAGING REPORT Page 1 of 1 COPY
--- NOTE | ~2016-11-13 | CR72 ---
[facility] A Service of [facility] RADIOLOGY TEXT RESULTS PATIENT: KALYAN AMES LOCATION: [address]20 : [birth year] UNIT #: [id number] AGE: [address]: Nithin Yung MD SEX: M ORDER DR: [id number] [facility] [address] [facility]. [place], [place] [address] [id number] I MR#: [id number] Acc #: [id number] NAME: KALYAN AMES : 1950 SEX: M STUDY DATE/TIME: 11/13/2016 13:35 UNIT: [facility] ROOM: [facility] STUDY DESCRIPTION: CR Chest Single View Portable Attending Physician: Nithin Yung M.D. Ordering Physician: Nithin Yung M.D. Primary Care Physician: Primary Care Physician No MEDICAL IMAGING REPORT This report is preliminary unless electronic signature is present EXAM Chest portable, 11/13/2016 1335 hours HISTORY 66-year-old man with 2-day history of chest pain and shortness of air. History of smoking and COPD. COMPARISON 11/13/2016 0524 hours FINDINGS Two portable upright views of the chest demonstrate median sternotomy change with valve replacement. Heart size is normal. Aorta is minimally tortuous. Pulmonary vascularity is within normal limits. There are mild coarse interstitial changes in the mid and lower lungs, slightly increased from earlier film. There is trace blunting of the right costophrenic sulcus. IMPRESSION There is coarse interstitial prominence in the mid and lower lungs, minimally increased from 11/13/2016. There is trace blunting of the right costophrenic sulcus, which may be new. Dictated by... Samara Hernandez M.D. THIS IS AN ELECTRONICALLY VERIFIED REPORT Samara Hernandez M.D. at 11/14/2016 9:22 AM DERIK/que TD: 11/13/2016 16:32 JOB #: [id number] [facility] A Service of [facility] & [facility] RADIOLOGY TEXT RESULTS PATIENT: KALYAN AMES LOCATION: [facility]3-20 : [birth year] UNIT #: [id number] AGE: [address]: Nithin Yung MD SEX: M ORDER DR: MEDICAL IMAGING REPORT Page 1 of 1 COPY
--- NOTE | ~2016-11-13 | CR72 ---
[facility] A Service of [facility] & [facility] RADIOLOGY TEXT RESULTS PATIENT: KALYAN AMES LOCATION: [address]20 : [birth year] UNIT #: [id number] AGE: [address]: Nithin Yung MD SEX: M ORDER DR: [id number] [facility] [address] [place], [place] [address] [id number] I MR#: [id number] Acc #: [id number] NAME: KALYAN AMES : 1950 SEX: M STUDY DATE/TIME: 11/15/2016 5:21 UNIT: [facility] ROOM: [facility] STUDY DESCRIPTION: CR Chest Single View Portable Attending Physician: Nithin Yung M.D. Ordering Physician: Seven Kauffman M.D. Primary Care Physician: No Primary Care Physician MEDICAL IMAGING REPORT This report is preliminary unless electronic signature is present EXAM Portable chest INDICATIONS Shortness of air today. PROCEDURE Frontal view chest COMPARISON 11/14/2016 FINDINGS Heart size unchanged. ET tube is stable. No dense consolidation visible pleural fluid or pneumothorax. IMPRESSION Stable. Dictated by... Gage Dawson M.D. THIS IS AN ELECTRONICALLY VERIFIED REPORT Gage Dawson M.D. at 11/15/2016 10:03 PM HARMEET/lauren TD: 11/15/2016 21:19 JOB #: [id number] MEDICAL IMAGING REPORT Page 1 of 1 COPY
--- NOTE | ~2016-11-13 | CR72 ---
[facility] A Service of [facility] & [facility] RADIOLOGY TEXT RESULTS PATIENT: KALYAN AMES LOCATION: [address] : [birth year] UNIT #: [id number] AGE: [address]: Nithin Yung MD SEX: M ORDER DR: [id number] [facility] [address] [facility] [place] [facility]. [place], [place] [address] [id number] MR#: [id number] Acc #: [id number] NAME: KALYAN AMES : 1950 SEX: M STUDY DATE/TIME: 11/13/2016 14:11 UNIT: [facility] ROOM: [facility] STUDY DESCRIPTION: CR Chest Single View Portable Attending Physician: Nithin Yung M.D. Ordering Physician: Ariel Ramirez M.D. Primary Care Physician: Primary Care Physician No MEDICAL IMAGING REPORT This report is preliminary unless electronic signature is present EXAM Portable chest HISTORY Shortness of air onset today, intubated. COMPARISON 11/13/2016 FINDINGS Endotracheal tube in place about 8.7 cm above the kyung. Further advancement 1-2 cm may be recommended for more optimum positioning. Diffuse pulmonary hyperinflation and hyperlucency compatible with emphysema. No focal airspace disease or consolidation, no effusions. Small amount of left mid lung zone atelectasis. 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 No pneumothorax. Dictated by... Ledy Spencer M.D. THIS IS AN ELECTRONICALLY VERIFIED REPORT Ledy Spencer M.D. at 11/14/2016 6:53 PM HAILEY/que TD: 11/13/2016 17:36 JOB #: [id number] MEDICAL IMAGING REPORT Page 1 of 1 COPY
--- NOTE | ~2016-11-13 | CR72 ---
[facility] A Service of [facility] RADIOLOGY TEXT RESULTS PATIENT: KALYAN AMES LOCATION: [address] : [birth year] UNIT #: [id number] AGE: [address]: Nithin Yung MD SEX: M ORDER DR: [id number] [facility] [address] [place], [place] [address] [id number] MR#: [id number] #: [id number] NAME: KALYAN AMES : 1950 SEX: M STUDY DATE/TIME: 11/14/2016 12:22 UNIT: [facility] ROOM: [facility] STUDY DESCRIPTION: CR Chest Single View Portable Attending Physician: Nithin Yung M.D. Ordering Physician: Verónica Russell M.D. Primary Care Physician: Primary Care Physician No MEDICAL IMAGING REPORT This report is preliminary unless electronic signature is present EXAM Portable chest one-view, 11/14/2016 COMPARISON 11/14/2016 at 11:15 CLINICAL HISTORY Dobbhoff tube placement FINDINGS In addition to an ET tube and right IJ central line there is a feeding tube, distal tip appears to be in the lower mid esophagus about 4-5 cm above the diaphragm. No pneumothorax. Dictated by... Johny Gil M.D. THIS IS AN ELECTRONICALLY VERIFIED REPORT Johny Gil M.D. at 11/14/2016 4:05 PM SOSA/fredy TD: 11/14/2016 15:05 JOB #: [id number] MEDICAL IMAGING REPORT Page 1 of 1 COPY
--- NOTE | ~2016-11-13 | EKG ---
PATIENT: KALYAN AMES UNIT #: [id number] Ventricular Rate: 97 BPM Atrial Rate: 97 BPM P-R Interval: 164 ms QRS Duration: 104 ms Q-T Interval: 346 ms QTC Calculation(Bezet): 439 ms P [place]: 76 degrees Calculated R [place]: -40 degrees Calculated T [place]: 18 degrees Diagnosis Line: Sinus rhythm with Premature atrial complexes Diagnosis Line: Left axis deviation Diagnosis Line: Left atrial enlargement Diagnosis Line: Marked ST abnormality, possible inferior Diagnosis Line: subendocardial injury Diagnosis Line: Abnormal ECG Diagnosis Line: When compared with ECG of 13-NOV-2016 05:36, Diagnosis Line: (unconfirmed) Diagnosis Line: Premature atrial complexes are now Present Diagnosis Line: Confirmed by JOHN PATEL MD ([id number]) on Diagnosis Line: 11/14/2016 4:35:01 PM INTERPRETING MD: CARIN
[~2016-11-13 04:49] MED LIST: ALTACE PO; ASPIRIN PO; ASPIRIN81 M2 PO; CALCIUM 600 W/V1 TA2 PO; COUMADIN PO; COUMADIN5 MG PO; FISH OIL 1,0001 CAP PO; FISH OIL 1,001000 MG PO; LEVAQUIN PO; LIPITOR PO; LOPRESSOR PO; NORVASC PO; PAXIL PO; PAXIL10 MG PO; PREDNISONE PO; PRILOSEC PO; PRILOSEC20 M1 PO; RAMIPRIL10 MG PO; SYNTHROID PO; SYNTHROID125 PO; VITAMIN D 4001 UDTAB PO
[2016-11-13 05:10] LABS: ARTERIAL BLD GAS O2 SATURATION 93.7 % (90.0-100.0); ARTERIAL BLOOD GAS CARBOXY HB 3.2 %sat (0.0-9.0); ARTERIAL BLOOD GAS HCO3 25.9 mmol/L; ARTERIAL BLOOD GAS MET HB 0.6 %sat (0.0-2.0); ARTERIAL BLOOD GAS PCO2 43.6 mmHg (35.0-45.0); ARTERIAL BLOOD GAS PO2 92.7 mmHg (80.0-100); ARTERIAL BLOOD GAS pH 7.383 (7.350-7.450)
[2016-11-13 05:11] LABS: ARTERIAL BLOOD GAS ALLEN TEST NORMAL; ARTERIAL BLOOD GAS ART SITE RIGHT RADIAL; ARTERIAL BLOOD GAS DELIVERY NASAL CANNULA; ARTERIAL DRAW? YES
[2016-11-13 05:18] LABS: BASOPHIL# 0.1 X10e3 (0-0.3); BASOPHIL% 0.6 % (0-2.5); EOSINOPHIL# 0.3 X10e3 (0-0.7); EOSINOPHIL% 2.3 % (0.0-7.0); HEMATOCRIT 48.3 % (38.0-50.0); HEMOGLOBIN 16.1 gm/dL (13.0-16.0); LYMPHOCYTE# 1.4 X10e3 (1.0-3.5); LYMPHOCYTE% 10.9 % (17.0-45.0); MEAN CORPUSCULAR HEMOGLOBIN 31.2 PG (28-34); MEAN CORPUSCULAR HGB CONC 33.2 g/dL (30-36); MONOCYTE# 1.6 X10e3 (0-1.0); MONOCYTE% 12.9 % (3.0-12.0); NEUTROPHIL# 9.1 X10e3 (1.5-7.1); NEUTROPHIL% 73.3 % (40-75); PLATELET COUNT 227 X10e3 (140-420); RED BLOOD COUNT 5.14 X10e (3.90-5.60); RED CELL DISTRIBUTION WIDTH 14.5 % (11.0-15.5); WHITE BLOOD COUNT 12.4 X10e3 (4.0-10.5)
[2016-11-13 05:21] LABS: DIFF IND NO
[2016-11-13 05:39] LABS: ALBUMIN SERUM 4.6 g/dL (3.5-5.0); BILIRUBIN,TOTAL 0.6 mg/dL (0.2-2.0); CALCIUM SERUM 9.7 mg/dL (8.4-10.2); GLOM FILT RATE Estimated 78.6 mL/min (>60); POTASSIUM 4.6 mmol/L (3.5-5.1); PROTEIN TOTAL SERUM 7.7 g/dL (6.0-8.3)
[2016-11-13] MEDS ORDERED: METOPROLOL TART25 MG PO (06:03)
[2016-11-13] MEDS ORDERED: WARFARIN SODIU7.5 M1 PO (06:05)
[2016-11-13] MEDS ORDERED: SYNTHROID125 PO (06:05)
[2016-11-13] MEDS ORDERED: LIPITOR40 MG PO (06:06)
[2016-11-13 06:07] LABS: POC - CKMB 8.4 ng/mL (0.0-7.9); POC - TROPONIN <0.05 ng/mL (<=0.05)
[2016-11-13] MEDS ORDERED: RAMIPRIL5 MG PO (06:08)
[2016-11-13] MEDS ORDERED: PAXIL30 MG PO (06:08)
[2016-11-13] MEDS ORDERED: ASPIRIN81 M2 PO (06:08)
[2016-11-13] MEDS ORDERED: MAGNESIUM250 M1 PO (06:09)
[2016-11-13] MEDS ORDERED: VITAMIN D1000 UNI1 PO (06:09)
[2016-11-13 06:54] LABS: POC - CKMB 8.2 ng/mL (0.0-7.9); POC - TROPONIN <0.05 ng/mL (<=0.05)
[2016-11-13 09:15] LABS: INR 2.3; PROTHROMBIN TIME (PATIENT) 24.8 SECONDS (10.0-11.7)
[2016-11-13 12:57] LABS: %MB 4.1 % (0.0-4.0); MB 30.9 ng/ml
[2016-11-13 15:18] LABS: ARTERIAL BLOOD GAS CARBOXY HB 0.2 %sat (0.0-9.0); ARTERIAL BLOOD GAS HCO3 23.9 mmol/L; ARTERIAL BLOOD GAS MET HB 0.8 %sat (0.0-2.0); ARTERIAL BLOOD GAS pH 7.223 (7.350-7.450)
[2016-11-13 15:20] LABS: ARTERIAL BLOOD GAS PCO2 58.1 mmHg (35.0-45.0)
[2016-11-13 15:21] LABS: ARTERIAL BLOOD GAS ALLEN TEST NORMAL; ARTERIAL BLOOD GAS VENT MODE AC; ARTERIAL DRAW? YES
[2016-11-13 18:30] LABS: %MB 7.6 % (0.0-4.0); MB 68.5 ng/ml
[2016-11-13 18:58] LABS: ARTERIAL BLD GAS O2 SATURATION 95.1 % (90.0-100.0); ARTERIAL BLOOD GAS CARBOXY HB 0.6 %sat (0.0-9.0); ARTERIAL BLOOD GAS HCO3 25.2 mmol/L; ARTERIAL BLOOD GAS MET HB 1.2 %sat (0.0-2.0); ARTERIAL BLOOD GAS PO2 97.7 mmHg (80.0-100); ARTERIAL BLOOD GAS pH 7.246 (7.350-7.450)
[2016-11-13 18:59] LABS: ARTERIAL BLOOD GAS ALLEN TEST NORMAL; ARTERIAL BLOOD GAS ART SITE RIGHT RADIAL; ARTERIAL BLOOD GAS DELIVERY VENT; ARTERIAL BLOOD GAS PCO2 57.9 mmHg (35.0-45.0); ARTERIAL BLOOD GAS VENT MODE AC; ARTERIAL DRAW? YES
[2016-11-14 00:08] LABS: %MB 9.2 % (0.0-4.0); MB 92.4 ng/ml
[2016-11-14 05:30] LABS: INR 2.3; PARTIAL THROMBOPLASTIN TIME 35.2 SECONDS (23.5-31.3); PROTHROMBIN TIME (PATIENT) 24.7 SECONDS (10.0-11.7)
[2016-11-14 05:48] LABS: BASOPHIL% 0.2 % (0-2.5); HEMATOCRIT 42.1 % (38.0-50.0); HEMOGLOBIN 14.4 gm/dL (13.0-16.0); LYMPHOCYTE# 0.7 X10e3 (1.0-3.5); LYMPHOCYTE% 3.2 % (17.0-45.0); MEAN CELL VOLUME 94.1 FL (83-96); MEAN CORPUSCULAR HEMOGLOBIN 32.1 PG (28-34); MEAN CORPUSCULAR HGB CONC 34.1 g/dL (30-36); MEAN PLATELET VOLUME 8.5 FL (6.5-11.5); MONOCYTE# 1.2 X10e3 (0-1.0); MONOCYTE% 5.6 % (3.0-12.0); NEUTROPHIL# 20.4 X10e3 (1.5-7.1); PLATELET COUNT 244 X10e3 (140-420); RED BLOOD COUNT 4.48 X10e (3.90-5.60); RED CELL DISTRIBUTION WIDTH 14.6 % (11.0-15.5)
[2016-11-14 05:53] LABS: DIFF IND YES; WHITE BLOOD COUNT 22.5 X10e3 (4.0-10.5)
[2016-11-14 05:56] LABS: BUN/CREATININE RATIO 12.5; CALCIUM SERUM 8.6 mg/dL (8.4-10.2); POTASSIUM 5.1 mmol/L (3.5-5.1)
[2016-11-14 07:40] LABS: PLATELET ESTIMATE NORMAL (NORMAL); RBC NORMAL YES
[2016-11-14 08:40] LABS: URINE APPEARANCE HAZY; URINE BILIRUBIN NEG (NEG); URINE BLOOD 4+ (NEG); URINE COLOR YELLOW; URINE GLUCOSE NORM (NORM); URINE KETONE NEG (NEG); URINE LEUKOCYTE ESTERASE 1+ (NEG); URINE NITRATE NEG (NEG); URINE PROTEIN 1+ (NEG); URINE UROBILINOGEN NORM (NORM)
[2016-11-14 08:58] LABS: ARTERIAL BLOOD GAS CARBOXY HB 0.5 %sat (0.0-9.0); ARTERIAL BLOOD GAS HCO3 25.7 mmol/L; ARTERIAL BLOOD GAS PCO2 54.4 mmHg (35.0-45.0); ARTERIAL BLOOD GAS pH 7.283 (7.350-7.450)
[2016-11-14 08:59] LABS: ARTERIAL BLOOD GAS ALLEN TEST N; ARTERIAL BLOOD GAS ART SITE RIGHT BRACHIAL; ARTERIAL BLOOD GAS DELIVERY VENT; ARTERIAL BLOOD GAS MET HB 0.7 %sat (0.0-2.0); ARTERIAL BLOOD GAS VENT MODE AC; ARTERIAL DRAW? YES
[2016-11-14 09:12] LABS: URBCS1 AUWI 50-100 /[HPF] (0-2)
[2016-11-14 09:13] LABS: URINE BACTERIA AUWI NEG (NEGATIVE); URINE CRYSTALS URIC ACID /[HPF]
[2016-11-14 10:10] LABS: ARTERIAL BLOOD GAS ART SITE RIGHT RADIAL
[2016-11-14 10:12] LABS: ARTERIAL BLOOD GAS ALLEN TEST NORMAL; ARTERIAL BLOOD GAS ART SITE LEFT RADIAL; ARTERIAL BLOOD GAS CARBOXY HB 0.4 %sat (0.0-9.0); ARTERIAL BLOOD GAS DELIVERY NON REBREATHER MASK; ARTERIAL BLOOD GAS HCO3 15.8 mmol/L; ARTERIAL BLOOD GAS MET HB 0.7 %sat (0.0-2.0); ARTERIAL BLOOD GAS PCO2 66.2 mmHg (35.0-45.0); ARTERIAL BLOOD GAS pH 6.987 (7.350-7.450); ARTERIAL DRAW? YES
[2016-11-14 15:29] LABS: BUN/CREATININE RATIO 16.87; CALCIUM SERUM 7.2 mg/dL (8.4-10.2); CREATININE SERUM 1.6 mg/dL (0.6-1.4); GLOM FILT RATE Estimated 44.6 mL/min (>60); POTASSIUM 4.2 mmol/L (3.5-5.1)
[2016-11-14 18:26] LABS: INR 2.1
[2016-11-15 01:37] LABS: PARTIAL THROMBOPLASTIN TIME 96.6 SECONDS (23.5-31.3)
[2016-11-15 03:37] LABS: BASOPHIL% 0.1 % (0-2.5); HEMATOCRIT 36.8 % (38.0-50.0); LYMPHOCYTE# 0.5 X10e3 (1.0-3.5); LYMPHOCYTE% 3.2 % (17.0-45.0); MEAN CELL VOLUME 94.3 FL (83-96); MEAN CORPUSCULAR HEMOGLOBIN 31.3 PG (28-34); MEAN CORPUSCULAR HGB CONC 33.2 g/dL (30-36); MEAN PLATELET VOLUME 8.2 FL (6.5-11.5); MONOCYTE# 0.8 X10e3 (0-1.0); NEUTROPHIL# 15.5 X10e3 (1.5-7.1); NEUTROPHIL% 91.7 % (40-75); PLATELET COUNT 192 X10e3 (140-420); RED CELL DISTRIBUTION WIDTH 14.7 % (11.0-15.5); WHITE BLOOD COUNT 16.9 X10e3 (4.0-10.5)
[2016-11-15 03:45] LABS: ARTERIAL BLD GAS O2 SATURATION 96.7 % (90.0-100.0); ARTERIAL BLOOD GAS CARBOXY HB 0.5 %sat (0.0-9.0); ARTERIAL BLOOD GAS HCO3 26.4 mmol/L; ARTERIAL BLOOD GAS pH 7.321 (7.350-7.450)
[2016-11-15 03:47] LABS: INR 1.8; PROTHROMBIN TIME (PATIENT) 20.1 SECONDS (10.0-11.7)
[2016-11-15 04:00] LABS: ALBUMIN SERUM 3.5 g/dL (3.5-5.0); BILIRUBIN,TOTAL 0.6 mg/dL (0.2-2.0); BUN/CREATININE RATIO 24.16; CALCIUM SERUM 8.1 mg/dL (8.4-10.2); CREATININE SERUM 1.2 mg/dL (0.6-1.4); GLOM FILT RATE Estimated 63.1 mL/min (>60); MAGNESIUM 2.6 mg/dL (1.6-3.0); PHOSPHOROUS 2.9 mg/dL (2.5-4.6); POTASSIUM 4.9 mmol/L (3.5-5.1)
[2016-11-15 04:02] LABS: HEMOGLOBIN 12.2 gm/dL (13.0-16.0)
[2016-11-15 04:03] LABS: DIFF IND NO
[2016-11-15 04:42] LABS: ARTERIAL BLOOD GAS ALLEN TEST NORMAL; ARTERIAL BLOOD GAS ART SITE LEFT RADIAL; ARTERIAL BLOOD GAS DELIVERY VENT; ARTERIAL BLOOD GAS PCO2 51.2 mmHg (35.0-45.0); ARTERIAL BLOOD GAS VENT MODE AC; ARTERIAL DRAW? YES
[2016-11-15 10:55] LABS: ARTERIAL BLD GAS O2 SATURATION 94.9 % (90.0-100.0); ARTERIAL BLOOD GAS CARBOXY HB 0.5 %sat (0.0-9.0); ARTERIAL BLOOD GAS HCO3 30.3 mmol/L; ARTERIAL BLOOD GAS MET HB 0.7 %sat (0.0-2.0); ARTERIAL BLOOD GAS PCO2 53.5 mmHg (35.0-45.0); ARTERIAL BLOOD GAS PO2 79.1 mmHg (80.0-100); ARTERIAL BLOOD GAS pH 7.361 (7.350-7.450)
[2016-11-15 10:56] LABS: ARTERIAL BLOOD GAS ALLEN TEST NORMAL; ARTERIAL BLOOD GAS ART SITE RIGHT RADIAL; ARTERIAL BLOOD GAS DELIVERY VENT; ARTERIAL BLOOD GAS VENT MODE A/C; ARTERIAL DRAW? YES
[2016-11-15 14:45] LABS: BUN/CREATININE RATIO 18.75; CREATININE SERUM 1.6 mg/dL (0.6-1.4); GLOM FILT RATE Estimated 44.6 mL/min (>60); MAGNESIUM 2.8 mg/dL (1.6-3.0); POTASSIUM 4.5 mmol/L (3.5-5.1)
[2016-11-15 19:29] LABS: CALCIUM SERUM 7.8 mg/dL (8.4-10.2); CREATININE SERUM 1.5 mg/dL (0.6-1.4); GLOM FILT RATE Estimated 48.2 mL/min (>60); MAGNESIUM 2.4 mg/dL (1.6-3.0); POTASSIUM 4.2 mmol/L (3.5-5.1)
[2016-11-16 04:02] LABS: ARTERIAL BLD GAS O2 SATURATION 95.2 % (90.0-100.0); ARTERIAL BLOOD GAS CARBOXY HB 0.5 %sat (0.0-9.0); ARTERIAL BLOOD GAS HCO3 36.3 mmol/L; ARTERIAL BLOOD GAS MET HB 1.1 %sat (0.0-2.0); ARTERIAL BLOOD GAS PO2 86.4 mmHg (80.0-100); ARTERIAL BLOOD GAS pH 7.397 (7.350-7.450)
[2016-11-16 04:07] LABS: ARTERIAL BLOOD GAS ALLEN TEST NORMAL; ARTERIAL BLOOD GAS ART SITE RIGHT RADIAL; ARTERIAL BLOOD GAS DELIVERY VENT; ARTERIAL BLOOD GAS VENT MODE AC; ARTERIAL DRAW? YES
[2016-11-16 04:18] LABS: BASOPHIL% 0.1 % (0-2.5); DIFF IND NO; EOSINOPHIL% 0.2 % (0.0-7.0); HEMATOCRIT 35.9 % (38.0-50.0); HEMOGLOBIN 11.9 gm/dL (13.0-16.0); LYMPHOCYTE# 0.5 X10e3 (1.0-3.5); LYMPHOCYTE% 2.9 % (17.0-45.0); MEAN CELL VOLUME 94.1 FL (83-96); MEAN CORPUSCULAR HEMOGLOBIN 31.2 PG (28-34); MEAN CORPUSCULAR HGB CONC 33.2 g/dL (30-36); MEAN PLATELET VOLUME 7.8 FL (6.5-11.5); MONOCYTE% 5.8 % (3.0-12.0); NEUTROPHIL# 15.1 X10e3 (1.5-7.1); PLATELET COUNT 196 X10e3 (140-420); RED BLOOD COUNT 3.81 X10e (3.90-5.60); RED CELL DISTRIBUTION WIDTH 14.4 % (11.0-15.5); WHITE BLOOD COUNT 16.6 X10e3 (4.0-10.5)
[2016-11-16 04:35] LABS: ALBUMIN SERUM 3.6 g/dL (3.5-5.0); BILIRUBIN,TOTAL 0.7 mg/dL (0.2-2.0); BUN/CREATININE RATIO 21.17; CALCIUM SERUM 7.6 mg/dL (8.4-10.2); CREATININE SERUM 1.7 mg/dL (0.6-1.4); GLOM FILT RATE Estimated 41.4 mL/min (>60); MAGNESIUM 2.2 mg/dL (1.6-3.0); PHOSPHOROUS 3.9 mg/dL (2.5-4.6); POTASSIUM 3.9 mmol/L (3.5-5.1); PROTEIN TOTAL SERUM 6.4 g/dL (6.0-8.3)
[2016-11-16 08:31] LABS: BUN/CREATININE RATIO 22.5; CALCIUM SERUM 7.6 mg/dL (8.4-10.2); CREATININE SERUM 1.6 mg/dL (0.6-1.4); GLOM FILT RATE Estimated 44.6 mL/min (>60); POTASSIUM 3.6 mmol/L (3.5-5.1)
[2016-11-16 14:21] LABS: BUN/CREATININE RATIO 21.76; CALCIUM SERUM 7.5 mg/dL (8.4-10.2); CREATININE SERUM 1.7 mg/dL (0.6-1.4); GLOM FILT RATE Estimated 41.4 mL/min (>60); MAGNESIUM 2.1 mg/dL (1.6-3.0); POTASSIUM 3.3 mmol/L (3.5-5.1)
== END 2016-11-16 22:15 | DRG 208 ==
LOC: CED 04:49 → CEDOF 06:40 → CICCU3 06:40 → CED 07:00 → CEDOF 07:00 → CICCU3 08:09 → CEDOF 08:09 → CICCU3 08:09
PROVIDERS: Emergency Medicine; Hospitalist; Internal Medicine; Internal Medicine Cardiovascular Disease; Internal Medicine Nephrology; Nurse Practitioner
PROC: 5A1945Z Respiratory Ventilation, 24-96 Consecutive Hours (ICD-10-PCS; principal; 2016-11-13)
PROC: 0BH17EZ Insertion of Endotracheal Airway into Trachea, Via Natural or Artificial Opening (ICD-10-PCS; 2016-11-13)
PROC: B24BZZZ Ultrasonography of Heart with Aorta (ICD-10-PCS; 2016-11-13)
PROC: 0DH67UZ Insertion of Feeding Device into Stomach, Via Natural or Artificial Opening (ICD-10-PCS; 2016-11-14)
PROC: 05HM33Z Insertion of Infusion Device into Right Internal Jugular Vein, Percutaneous Approach (ICD-10-PCS; 2016-11-14)
DX: J96.21 Acute and chronic respiratory failure with hypoxia (principal); I21.4 Non-ST elevation (NSTEMI) myocardial infarction; R57.0 Cardiogenic shock; I50.21 Acute systolic (congestive) heart failure; N17.9 Acute kidney failure, unspecified; J44.0 Chronic obstructive pulmonary disease with (acute) lower respiratory infection; J44.1 Chronic obstructive pulmonary disease with (acute) exacerbation; E87.2 Acidosis; J96.22 Acute and chronic respiratory failure with hypercapnia; J20.9 Acute bronchitis, unspecified; F17.210 Nicotine dependence, cigarettes, uncomplicated; E78.5 Hyperlipidemia, unspecified; E03.9 Hypothyroidism, unspecified; I11.0 Hypertensive heart disease with heart failure; N28.1 Cyst of kidney, acquired; I25.2 Old myocardial infarction; I25.5 Ischemic cardiomyopathy; K21.9 Gastro-esophageal reflux disease without esophagitis; F32.9 Major depressive disorder, single episode, unspecified; Z82.49 Family history of ischemic heart disease and other diseases of the circulatory system
CPT/HCPCS: 36600; 71010; 74000; 76770; 80048; 80053; 80061; 81003; 82308; 82550; 82553; 82570; 82803; 83735; 83880; 84100; 84300; 84443; 84484; 85025; 85610; 85730; 87040; 87070; 87086; 87205; 92950; 93005; 93306; 94002; 94003; 94640; 94660; 94760; 94761; 96374; 99291; J0171; J0282; J0461; J0696; J1250; J1327; J1644; J1940; J2250; J2270; J2370; J2405; J2930; J3010; J3475; J3490